=== PATIENT | male | born 1930 | race Caucasian/White ===

== ENCOUNTER 2016-05-17 13:35 | Outpatient (CLI) | payer MEDICARE | END 2016-05-17 13:36 | disposition home or self-care (01) | DX: D64.9 Anemia, unspecified (principal) ==

== ENCOUNTER 2016-05-29 08:26 | Outpatient (CLI) | payer MEDICARE | END 2016-05-29 08:27 | disposition home or self-care (01) | DX: D64.9 Anemia, unspecified (principal) ==

== ENCOUNTER 2016-08-22 21:59 | Outpatient (CLI) | payer MEDICARE | END 2016-08-22 22:00 | disposition home or self-care (01) | DX: C61 Malignant neoplasm of prostate (principal) ==

== ENCOUNTER 2016-09-19 14:59 | Outpatient (CLI) | payer MEDICARE ==
[2016-09-21 20:03] LABS: ANA SCREEN POSITIVE (NEGATIVE)
== END 2016-09-19 15:00 | disposition home or self-care (01) ==
LOC: LAB.R 14:59
PROVIDERS: ATTEND Internal Medicine
DX: M13.841 Other specified arthritis, right hand (principal)
CPT/HCPCS: 85651; 86038; 86140; 86200; 86430

== ENCOUNTER 2016-11-21 08:31 | Outpatient (CLI) | payer MEDICARE ==
[2016-11-21 16:22] LABS: BASOPHILS # (AUTO) 0.1 10^3/uL (0.0-0.1); EOSINOPHILS # (AUTO) 0.6 10^3/uL (0.0-0.7); EOSINOPHILS % (AUTO) 6.6 %; HCT - HEMATOCRIT 38.8 % (42.0-52.0); HGB - HEMOGLOBIN 13.1 g/dL (14.0-18.0); LYMPHOCYTES # (AUTO) 1.7 10^3/uL (1.5-3.5); LYMPHOCYTES % (AUTO) 19.7 %; MEAN CORPUSCULAR HEMOGLOBIN 32.2 pg (27.0-31.0); MEAN CORPUSCULAR HGB CONC 33.8 g/dL (32.0-36.0); MEAN CORPUSCULAR VOLUME 95.3 fL (80.0-94.0); MEAN PLATELET VOLUME 9.7 fL (7.4-11.4); MONOCYTES # (AUTO) 0.9 10^3/uL (0.0-1.0); MONOCYTES % (AUTO) 10.6 %; NEUTROPHILS # (AUTO) 5.2 10^3/uL (1.5-6.6); NEUTROPHILS % (AUTO) 62.1 %; NUCLEATED RED BLOOD CELLS AUTO 0.1 /100WBC; RED BLOOD COUNT 4.07 10^6/uL (4.70-6.10); RED CELL DISTRIBUTION WIDTH 18.7 % (12.0-15.0); UNCORRECTED WHITE BLOOD COUNT 8.4 x10^3/uL; WHITE BLOOD COUNT 8.4 x10^3/uL (4.8-10.8)
[2016-11-21 16:37] LABS: ALBUMIN/GLOBULIN RATIO 1.7 (1.0-2.2); BILIRUBIN,TOTAL 0.7 mg/dL (0.2-1.0); BUN - BLOOD UREA NITROGEN 21 mg/dL (6-20); CALCIUM 9.3 mg/dL (8.5-10.3); CARBON DIOXIDE - CO2 28 mmol/L (21-32); CHLORIDE 103 mmol/L (101-111); CHOL/HDL RATIO 2.6 (<5.0); CHOLESTEROL 147 mg/dL; GFR - MDRD 71 (>89); GLUCOSE 86 mg/dL (70-100); HDL CHOLESTEROL 56 mg/dL; LDL/HDL RATIO 1.4 (<3.6); SODIUM 138 mmol/L (135-145); TOTAL PROTEIN 7.2 g/dL (6.7-8.2); TRIGLYCERIDES 69 mg/dL; VLDL CHOLESTEROL 14 mg/dL
== END 2016-11-21 08:32 | disposition home or self-care (01) ==
LOC: LAB.R 08:31
PROVIDERS: ATTEND Internal Medicine
DX: D64.9 Anemia, unspecified (principal); M19.90 Unspecified osteoarthritis, unspecified site; E03.9 Hypothyroidism, unspecified; E78.2 Mixed hyperlipidemia
CPT/HCPCS: 80053; 80061; 84443; 85025; 85651; 86140

== ENCOUNTER 2017-01-15 10:17 | Outpatient (CLI) | payer MEDICARE | END 2017-01-15 10:18 | disposition home or self-care (01) | LOC: LAB.R 10:17 | PROVIDERS: ATTEND Internal Medicine | DX: E03.9 Hypothyroidism, unspecified (principal); Z79.899 Other long term (current) drug therapy | CPT/HCPCS: 84443 ==

== ENCOUNTER 2017-03-27 08:00 | Outpatient (CLI) | payer MEDICARE | END 2017-03-27 08:01 | disposition home or self-care (01) | LOC: LAB.R 08:00 | PROVIDERS: ATTEND Internal Medicine | DX: E03.9 Hypothyroidism, unspecified (principal); Z79.899 Other long term (current) drug therapy | CPT/HCPCS: 84443 ==

== ENCOUNTER 2017-11-26 08:00 | Outpatient (CLI) | payer MEDICARE ==
[2017-11-26 15:31] LABS: BASOPHILS # (AUTO) 0.1 10^3/uL (0.0-0.1); BASOPHILS % (AUTO) 0.9 %; EOSINOPHILS # (AUTO) 0.5 10^3/uL (0.0-0.7); EOSINOPHILS % (AUTO) 6.2 %; HGB - HEMOGLOBIN 13.6 g/dL (14.0-18.0); LYMPHOCYTES # (AUTO) 1.5 10^3/uL (1.5-3.5); LYMPHOCYTES % (AUTO) 19.9 %; MEAN CORPUSCULAR HGB CONC 34.2 g/dL (32.0-36.0); MEAN CORPUSCULAR VOLUME 96.5 fL (80.0-94.0); MEAN PLATELET VOLUME 9.6 fL (7.4-11.4); MONOCYTES # (AUTO) 0.7 10^3/uL (0.0-1.0); MONOCYTES % (AUTO) 9.1 %; NEUTROPHILS % (AUTO) 63.9 %; PLT - PLATELET COUNT 212 10^3/uL (130-450); RED BLOOD COUNT 4.12 10^6/uL (4.70-6.10); WHITE BLOOD COUNT 7.8 x10^3/uL (4.8-10.8)
[2017-11-26 15:35] LABS: ALBUMIN 4.2 g/dL (3.2-5.5); ALBUMIN/GLOBULIN RATIO 1.2 (1.0-2.2); ALKALINE PHOSPHATASE 32 IU/L (42-121); ALT ALANINE AMINOTRANSFERASE 20 IU/L (10-60); AST ASPARTATE AMINOTRANSFERASE 25 IU/L (10-42); BILIRUBIN,TOTAL 1.2 mg/dL (0.2-1.0); BUN - BLOOD UREA NITROGEN 23 mg/dL (6-20); CALCIUM 9.4 mg/dL (8.5-10.3); CARBON DIOXIDE - CO2 28 mmol/L (21-32); CHLORIDE 101 mmol/L (101-111); CHOL/HDL RATIO 2.9 (<5.0); CHOLESTEROL 163 mg/dL; GFR - MDRD 71 (>89); GLUCOSE 93 mg/dL (70-100); HDL CHOLESTEROL 56 mg/dL; LDL CHOLESTEROL,CALCULATED 85 mg/dL; LDL/HDL RATIO 1.5 (<3.6); SODIUM 136 mmol/L (135-145); TOTAL PROTEIN 7.6 g/dL (6.7-8.2); VLDL CHOLESTEROL 22 mg/dL
== END 2017-11-26 08:01 | disposition home or self-care (01) ==
LOC: LAB.R 08:00
PROVIDERS: ATTEND Internal Medicine
DX: C61 Malignant neoplasm of prostate (principal); E78.5 Hyperlipidemia, unspecified; I10 Essential (primary) hypertension; E03.9 Hypothyroidism, unspecified
CPT/HCPCS: 80053; 80061; 83721; 84153; 84443; 85025

== ENCOUNTER 2018-04-02 09:25 | Outpatient (CLI) | payer MEDICARE | END 2018-04-02 23:59 | disposition home or self-care (01) | LOC: LAB 09:25 | PROVIDERS: ATTEND Internal Medicine | DX: E03.9 Hypothyroidism, unspecified (principal) | CPT/HCPCS: 84443 ==

== ENCOUNTER 2019-01-16 09:22 | Outpatient (CLI) | payer MEDICARE ==
[2019-01-16 09:55] LABS: ALBUMIN 4.3 g/dL (3.2-5.5); ALBUMIN/GLOBULIN RATIO 1.5 (1.0-2.2); ALKALINE PHOSPHATASE 36 IU/L (42-121); ALT ALANINE AMINOTRANSFERASE 24 IU/L (10-60); AST ASPARTATE AMINOTRANSFERASE 25 IU/L (10-42); BUN - BLOOD UREA NITROGEN 24 mg/dL (6-20); CALCIUM 8.9 mg/dL (8.5-10.3); CARBON DIOXIDE - CO2 31 mmol/L (21-32); CHLORIDE 105 mmol/L (101-111); CHOL/HDL RATIO 3.1 (<5.0); CHOLESTEROL 154 mg/dL; GFR - MDRD 71 (>89); GLUCOSE 109 mg/dL (70-100); HDL CHOLESTEROL 49 mg/dL; LDL CHOLESTEROL,CALCULATED 91 mg/dL; LDL/HDL RATIO 1.9 (<3.6); SODIUM 144 mmol/L (135-145); TOTAL PROTEIN 7.2 g/dL (6.7-8.2); VLDL CHOLESTEROL 14 mg/dL
[2019-01-16 10:39] LABS: HB2 TOTAL 13.6 g/dL; HEMOGLOBIN A1C 0.48 g/dL; HEMOGLOBIN A1C % 5.4 % (4.6-6.2)
== END 2019-01-16 09:23 | disposition home or self-care (01) ==
LOC: LAB 09:22
PROVIDERS: ATTEND Internal Medicine
DX: E78.5 Hyperlipidemia, unspecified (principal); E03.9 Hypothyroidism, unspecified; R73.02 Impaired glucose tolerance (oral)
CPT/HCPCS: 36415; 80053; 80061; 83036; 83721; 84443

== ENCOUNTER 2019-07-09 10:50 | Outpatient (CLI) | payer MEDICARE ==
--- NOTE | 2019-07-09 12:30 | XRAY Report ---
Reason: E03.9,HIP PAIN,LEFT Procedure Date: 07/09/2019 Accession Number: [id number] / [id number] Procedure: XR - Hip w/Pelvis 2-3V LT CPT Code: Final Report FULL RESULT: EXAM: LEFT HIP RADIOGRAPHY EXAM DATE: 07/09/2019 11:14 AM. CLINICAL HISTORY: E03.9, hip pain, left. COMPARISON: HIP 2 VIEW RT 12/26/2013 1:04 PM. TECHNIQUE: 2 views. FINDINGS: There is mild narrowing of the left hip joint space, with no significant osteophytic spurring. No femoral head collapse. No fracture or dislocation. Previous bipolar right hip arthroplasty, with normal alignment. Numerous prostate radiotherapy seeds project centrally in the lower pelvis. The sacroiliac joints appear intact. 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 [facility]
--- NOTE | 2019-07-11 07:56 | XRAY Report ---
Reason: HIP PAIN,LEFT Procedure Date: 07/09/2019 Accession Number: [id number] / [id number] Procedure: XR - Lumbar Spine Complete CPT Code: Final Report FULL RESULT: EXAM: LUMBOSACRAL SPINE RADIOGRAPHY EXAM DATE: 07/09/2019 11:45 AM. CLINICAL HISTORY: HIP PAIN, LEFT. COMPARISONS: None. TECHNIQUE: 3 views. FINDINGS: 5 non-rib bearing lumbar vertebral bodies. There is borderline grade 1 retrolisthesis of L2 on L3, and grade 1 anterolisthesis of L5 on S1. Mild anterior endplate osteophytic spurring and disk space narrowing at L2-L3. Moderate hypertrophic changes at the facet articulations bilaterally L4-L5 and L5-S1. Moderately heavy mural calcification of the abdominal aorta. Imaged portion of the sacroiliac joints appear IMPRESSION: Normal lumbar spine radiography. [facility]
== END 2019-07-09 10:51 | disposition home or self-care (01) ==
LOC: LAB 10:50 → DI 10:51
PROVIDERS: ATTEND Family Medicine
DX: M16.12 Unilateral primary osteoarthritis, left hip (principal); M47.816 Spondylosis without myelopathy or radiculopathy, lumbar region; M43.16 Spondylolisthesis, lumbar region; M43.17 Spondylolisthesis, lumbosacral region; E03.9 Hypothyroidism, unspecified
CPT/HCPCS: 36415; 72110; 84443

== ENCOUNTER 2020-02-11 10:20 | Outpatient (CLI) | payer MEDICARE | END 2020-02-11 10:21 | disposition home or self-care (01) | LOC: COV 10:20 | PROVIDERS: ATTEND Family Medicine | DX: Z20.828 Contact with and (suspected) exposure to other viral communicable diseases (principal) ==

== ENCOUNTER 2020-02-18 08:00 | Outpatient (CLI) | payer MEDICARE ==
[2020-02-18 11:43] LABS: BASOPHILS # (AUTO) 0.1 10^3/uL (0.0-0.1); EOSINOPHILS # (AUTO) 0.2 10^3/uL (0.0-0.7); EOSINOPHILS % (AUTO) 3.3 %; HGB - HEMOGLOBIN 13.1 g/dL (14.0-18.0); LYMPHOCYTES # (AUTO) 1.4 10^3/uL (1.5-3.5); LYMPHOCYTES % (AUTO) 19.8 %; MEAN CORPUSCULAR HEMOGLOBIN 32.9 pg (27.0-31.0); MEAN CORPUSCULAR HGB CONC 33.2 g/dL (32.0-36.0); MEAN PLATELET VOLUME 12.3 fL (7.4-11.4); MONOCYTES # (AUTO) 0.7 10^3/uL (0.0-1.0); MONOCYTES % (AUTO) 9.5 %; NEUTROPHILS # (AUTO) 4.8 10^3/uL (1.5-6.6); NEUTROPHILS % (AUTO) 65.8 %; PLT - PLATELET COUNT 242 10^3/uL (130-450); RED BLOOD COUNT 3.98 10^6/uL (4.70-6.10); RED CELL DISTRIBUTION WIDTH 18.1 % (12.0-15.0); WHITE BLOOD COUNT 7.2 x10^3/uL (4.8-10.8)
[2020-02-18 11:50] LABS: ALBUMIN 4.3 g/dL (3.2-5.5); ALBUMIN/GLOBULIN RATIO 1.6 (1.0-2.2); ALKALINE PHOSPHATASE 35 IU/L (42-121); ALT ALANINE AMINOTRANSFERASE 20 IU/L (10-60); AST ASPARTATE AMINOTRANSFERASE 17 IU/L (10-42); BILIRUBIN,TOTAL 0.8 mg/dL (0.2-1.0); BUN - BLOOD UREA NITROGEN 31 mg/dL (6-20); CALCIUM 9.4 mg/dL (8.5-10.3); CARBON DIOXIDE - CO2 26 mmol/L (21-32); CHLORIDE 101 mmol/L (101-111); CHOL/HDL RATIO 3.5 (<5.0); CHOLESTEROL 158 mg/dL; CREATININE 1.2 mg/dL (0.6-1.2); GLUCOSE 100 mg/dL (70-100); HDL CHOLESTEROL 45 mg/dL; LDL CHOLESTEROL,CALCULATED 86 mg/dL; LDL/HDL RATIO 1.9 (<3.6); SODIUM 139 mmol/L (135-145); VLDL CHOLESTEROL 27 mg/dL
[2020-02-18 12:35] LABS: HEMOGLOBIN A1c% 5.2 % (4.27-6.07)
== END 2020-02-18 08:01 | disposition home or self-care (01) ==
LOC: LAB.WCP 08:00
PROVIDERS: ATTEND Nurse Practitioner Family
DX: E78.5 Hyperlipidemia, unspecified (principal); I10 Essential (primary) hypertension; E03.9 Hypothyroidism, unspecified; R73.02 Impaired glucose tolerance (oral)
CPT/HCPCS: 36415; 80053; 80061; 83036; 83721; 84443; 85025

== ENCOUNTER 2020-05-23 12:15 | Outpatient (CLI) | payer MEDICARE | END 2020-05-23 23:59 | disposition home or self-care (01) | LOC: LAB.R 12:15 | PROVIDERS: ATTEND Nurse Practitioner | DX: R31.9 Hematuria, unspecified (principal) | CPT/HCPCS: 87086 ==

== ENCOUNTER 2020-05-23 13:07 | Emergency (ER) | payer MEDICARE ==
--- NOTE | 2020-05-23 13:51 | ED Physician Documentation ---
History of Present Illness - Stated complaint Stated Complaint: MALE - Chief complaint Chief Complaint: General - Additonal information Additional information: 89-year-old male presents the emergency department for difficulty urinating and blood from his penis. He reports that about midnight last night he got up to use the restroom and was able to void but noted a little bit of blood in the toilet he placed a depends catheter brief on and then went back to bed this morning when he woke up he was in pain and noticed blood coming from his penis. Since then he has had difficulty initiating the urine stream and has noticed that when he does void it is quite bloody. He does have a history of prostate cancer treated with radiation seeds 8 years ago. He reports that since then his PSA levels have been normal. He denies that he has difficulty initiating urine stream since then. Past medical history includes hypertension hypothyroidism. He is not anticoagulated. Review of Systems Constitutional: denies: Fever Eyes: reports: Reviewed and negative Ears: reports: Reviewed and negative Nose: reports: Reviewed and negative Throat: reports: Reviewed and negative Cardiac: reports: Reviewed and negative Respiratory: reports: Reviewed and negative GI: denies: Abdominal Pain, Nausea, Vomiting, Constipation, Diarrhea, Bloody / black stool : reports: Dysuria, Unable to Void, Hematuria, Discharge (bloody penile output) Musculoskeletal: reports: Reviewed and negative Neurologic: reports: Reviewed and negative PD PAST MEDICAL HISTORY - Past Medical History Past Medical History: Yes Cardiovascular: Hypertension, High cholesterol Respiratory: None Endocrine/Autoimmune: None GI: GERD : Other HEENT: None Psych: None Musculoskeletal: None Derm: None - Past Surgical History Past Surgical History: Yes General: Colonoscopy, EGD, Other Ortho: Hip replacement HEENT: Tonsil/Adenoidectomy - Present Medications Home Medications: Ambulatory Orders Medication Instructions Recorded Confirmed Aspirin [Aspir 81] 81 mg PO DAILY 02/10/13 08/22/15 Captopril 50 mg PO BID 02/10/13 08/22/15 Felodipine [Felodipine ER] 5 mg PO BID 02/10/13 08/22/15 Hydrochlorothiazide 25 gm MC DAILY 02/10/13 08/22/15 Omeprazole 20 mg PO DAILY 02/10/13 08/22/15 Simvastatin [Zocor] 10 mg PO HS 02/10/13 08/22/15 Levothyroxine [Synthroid] 0.075 mcg PO QDAC 07/25/13 08/22/15 - Allergies Allergies/Adverse Reactions: Allergies Allergy/AdvReac Type Severity Reaction Status Date / Time tape Allergy Intermediate Blisters Uncoded 05/23/20 13:24 - Social History Does the pt smoke?: No Smoking Status: Never smoker Does the pt drink ETOH?: Yes Does the pt have substance abuse?: No - Immunizations Immunizations are current?: Yes - POLST Patient has POLST: No PD ED PE EXPANDED - General General: Alert, No acute distress - Cardiac Cardiac: Regular Rate, Regular Rhythm, Murmur Present, Radial strong equal, Pedal strong equal, Cap refill < 2 sec - Respiratory Respiratory: Clear to ausultation denis. No: Distress - Abdomen Abdomen: Normal Bowel sounds, Surgical scars. No: Tender to palpation - Male Male : Circumcised (Blood at urethral meatus. Nontender penis, nontender scrotum and testes. No suprapubic flank or abdominal pain elicited) - Derm Derm: Normal color, Abrasion (s) (arms) - Extremities Extremities: Normal. No: Deformity, Tenderness - Neuro Neuro: Alert and Oriented X 3. No: Confused, Disoriented - GCS Eye Opening: Spontaneous Motor: Obeys Commands Verbal: Oriented Total: 15 Results - Vitals Vitals: Vital Signs - 24 hr 05/23/20 05/23/20 13:24 13:32 Temperature 36.3 C L 36.5 C Heart Rate 74 74 Respiratory 16 16 Rate Blood Pressure 168/81 H 168/81 H O2 Saturation 97 97 Oxygen O2 Source Room air - Labs Labs: Laboratory Tests 05/23/20 05/23/20 05/23/20 14:05 14:10 14:10 WBC 11.6 H RBC 3.61 L Hgb 12.0 L Hct 35.4 L MCV 98.1 H MCH 33.2 H MCHC 33.9 RDW 17.7 H Plt Count 233 MPV 11.7 H Neut # (Auto) 10.0 H Lymph # (Auto) 0.9 L Loving # (Auto) 0.7 Eos # (Auto) 0.0 Baso # (Auto) 0.1 Absolute Nucleated RBC 0.00 Nucleated RBC % 0.0 Sodium 138 Potassium 4.0 Chloride 99 L Carbon Dioxide 27 Anion Gap 12.0 BUN 28 H Creatinine 1.1 Estimated GFR (MDRD) 63 L Glucose 114 H Calcium 9.7 Total Bilirubin 0.8 AST 20 ALT 22 Alkaline Phosphatase 32 L Total Protein 7.0 Albumin 4.3 Globulin 2.7 Albumin/Globulin Ratio 1.6 Lipase 32 Urine Color RED/BLOODY Urine Clarity CLOUDY Urine pH 7.0 Ur Specific [place] 1.020 Urine Protein >=300 H Urine Glucose (UA) NEGATIVE Urine Ketones NEGATIVE Urine Occult Blood LARGE H Urine Nitrite NEGATIVE Urine Bilirubin NEGATIVE Urine Urobilinogen 1 (NORMAL) Ur Leukocyte Esterase NEGATIVE Urine RBC TNTC H Urine WBC 0-3 Ur Squamous Epith Cells RARE Squamous Urine Bacteria Few Ur Microscopic Review INDICATED Urine Culture Comments NOT INDICATED PD MEDICAL DECISION MAKING - ED course Complexity details: reviewed results, re-evaluated patient, considered differential, d/w patient ED course: 89-year-old male presents the emergency department with painful urination and blood coming from the tip of his penis. He does have a history of prostate cancer with radiation beads that have been placed about 8 years ago. Screening labs show mild leukocytosis but patient has no fevers. Though bloody his urine is not consistent with infection. His renal function is preserved on chemistry panel. A bladder scan was done and it showed about 289 mils of fluid in the bladder. We did catheterize this gentleman and did drain about 300 mils of bloody urine. I discussed with the patient the hematuria can cause urinary obstruction. The cause of that obstruction is not clear at this time. He needs urology consult and I will make a referral for him to Dr. Franklin in [place]. We discussed trialing leaving the Brown in or taking it out. At this time the patient elects to have the Brown removed. He will return if unable to void after 4 to 6 hours, has abdominal pain fevers or vomiting. Departure - Departure Disposition: 01 Home, Self Care Clinical Impression: Hematuria Qualifiers: Hematuria type: gross Qualified Code(s): R31.0 - Gross hematuria Condition: Stable Record reviewed to determine appropriate education?: Yes Follow-Up: Jair Morrell MD [Primary Care Provider] - Theodore Franklin MD [Provider Admit Priv/Credential] - Comments: You are seen in the emergency to department today for bloody urine. Your chemistry panel today shows that your kidney function is normal. Your urine does not show obvious infection. The cause of your bloody urine is not clear at this time however you do need to be seen by a urologist. As we discussed they may need to do a procedure called a cystoscopy where they would look inside your bladder with a cancer for a cause of the bloody urine. You have elected to have your Brown catheter removed today. It is okay to go home drink plenty of fluids. If you find that you are unable to eat adequately urinate after 4 to 6 hours, you begin to have fevers abdominal pain or vomiting please return to the emergency department. At that time we would place another catheter and discharge you home with it until you are able to see urology.
[2020-05-23 14:26] LABS: BASOPHILS # (AUTO) 0.1 10^3/uL (0.0-0.1); BASOPHILS % (AUTO) 0.4 %; EOSINOPHILS % (AUTO) 0.1 %; LYMPHOCYTES # (AUTO) 0.9 10^3/uL (1.5-3.5); LYMPHOCYTES % (AUTO) 7.4 %; MEAN CORPUSCULAR HEMOGLOBIN 33.2 pg (27.0-31.0); MEAN CORPUSCULAR HGB CONC 33.9 g/dL (32.0-36.0); MEAN CORPUSCULAR VOLUME 98.1 fL (80.0-94.0); MEAN PLATELET VOLUME 11.7 fL (7.4-11.4); MONOCYTES # (AUTO) 0.7 10^3/uL (0.0-1.0); MONOCYTES % (AUTO) 5.9 %; NEUTROPHILS % (AUTO) 85.8 %; PLT - PLATELET COUNT 233 10^3/uL (130-450); RED BLOOD COUNT 3.61 10^6/uL (4.70-6.10); RED CELL DISTRIBUTION WIDTH 17.7 % (12.0-15.0); WHITE BLOOD COUNT 11.6 x10^3/uL (4.8-10.8)
[2020-05-23 14:31] LABS: ALBUMIN 4.3 g/dL (3.2-5.5); ALBUMIN/GLOBULIN RATIO 1.6 (1.0-2.2); BILIRUBIN,TOTAL 0.8 mg/dL (0.2-1.0); CALCIUM 9.7 mg/dL (8.5-10.3); CREATININE 1.1 mg/dL (0.6-1.2)
[2020-05-23 14:44] LABS: BILIRUBIN,URINE NEGATIVE (NEGATIVE); GLUCOSE, URINE (UA) NEGATIVE (NEGATIVE); KETONES,URINE (UA) NEGATIVE (NEGATIVE); LEUKOCYTE ESTERASE, URINE NEGATIVE (NEGATIVE); NITRITE,URINE NEGATIVE (NEGATIVE); OCCULT BLOOD,URINE LARGE (NEGATIVE); PROTEIN,URINE >=300 mg/dL (NEGATIVE); UROBILINOGEN,URINE 1 (NORMAL) E.U./dL (NORMAL)
[2020-05-23 14:55] LABS: CLARITY,URINE CLOUDY (CLEAR)
[2020-05-23 15:26] LABS: RBC,URINE TNTC /HPF (0-5); SQUAMOUS EPITHELIAL CELL,UR RARE Squamous (<= Few)
[2020-05-23 15:27] LABS: BACTERIA,URINE Few /HPF (None Seen)
[2020-05-23 15:41] VITALS: BP 174/96
== END 2020-05-23 15:57 | disposition home or self-care (01) ==
LOC: ED 13:07
DX: R31.0 Gross hematuria (principal); Z85.46 Personal history of malignant neoplasm of prostate; I10 Essential (primary) hypertension
CPT/HCPCS: 36415; 51701; 51798; 80053; 81001; 81003; 83690; 85025; 87086; 99283

== ENCOUNTER 2020-06-09 13:27 | Outpatient (CLI) | payer MEDICARE ==
[2020-06-09] MEDS ORDERED: IOVERSOL 320 100 ML VIAL IVP ONE ×2 (13:47→13:52)
--- NOTE | 2020-06-10 10:05 | CT Report ---
PROCEDURE: IVP INDICATIONS: GROSS HEMATURIA CONTRAST: IV CONTRAST: Optiray 320 ml: 140 PO CONTRAST: *NO PO CONTRAST TECHNIQUE: After the administration of intravenous contrast, 5 mm thick sections acquired from the diaphragms to the symphysis. 5 mm thick coronal and sagittal reformats were acquired. For radiation dose reducti on, the following was used: automated exposure control, adjustment of mA and/or kV according to bradley ent size. COMPARISON: None. FINDINGS: Image quality: There is limited visualization of the pelvis secondary to artifact from hip arthropla sty. Lung bases: Lung bases are clear. Heart size is normal. Urinary system: Both kidneys are atrophic. Bilateral exophytic renal cysts are noted.. Contrast-janee led renal calyces are normal in morphology. Contrast filled portions of both ureters are normal in c aliber. Bladder is incompletely distended. Portions of the right lateral wall are partially obscured secondary to metallic streak artifact from adjacent hip arthroplasty. There is a questionable fillin g defect along the posterior right lateral bladder seen on series 6 image 94. Solid organs: Liver and spleen are normal in size and enhancement. Gallbladder is unremarkable Ranjit iary system is non dilated. Pancreas enhances normally. No adrenal nodules. Peritoneum and bowel: Bowel loops demonstrate normal wall thickness and caliber. No free fluid or a ir. Nodes and vessels: No retroperitoneal or mesenteric adenopathy by size criteria. Aorta and inferior vena cava are normal in size. Abdominal wall: No ventral hernias. Pelvis: No pathologic free pelvic fluid. No inguinal hernias or adenopathy. Prostate is enlarged. R adiation prostate seeds are noted. Bones: No suspicious bony lesions. No vertebral body compression fractures. IMPRESSION: 1. No nephro or ureterolithiasis. No bladder calculi. 2. Question of filling defect within the posterior inferior right bladder as above. While this could be artifact or volume averaging near the ureterovesicular junction, small lesion cannot be definitive ly excluded. Cystoscopy is recommended for further evaluation. Reviewed by: Chaya Felix MD on 06/10/2020 10:04 AM [facility] Approved by: Chaya Felix MD on 06/10/2020 10:04 AM [facility] Station ID: [id number]
== END 2020-06-09 13:28 | disposition home or self-care (01) ==
LOC: DI 13:27
PROVIDERS: ATTEND Urology
DX: R31.0 Gross hematuria (principal)
CPT/HCPCS: 74178; Q9967

== ENCOUNTER 2020-09-27 08:00 | Outpatient (CLI) | payer MEDICARE ==
[2020-09-27 12:23] LABS: BASOPHILS # (AUTO) 0.1 10^3/uL (0.0-0.1); BASOPHILS % (AUTO) 0.7 %; EOSINOPHILS # (AUTO) 0.2 10^3/uL (0.0-0.7); EOSINOPHILS % (AUTO) 2.5 %; HCT - HEMATOCRIT 35.3 % (42.0-52.0); HGB - HEMOGLOBIN 11.3 g/dL (14.0-18.0); LYMPHOCYTES # (AUTO) 1.1 10^3/uL (1.5-3.5); MEAN PLATELET VOLUME 12.1 fL (7.4-11.4); MONOCYTES % (AUTO) 10.9 %; NEUTROPHILS # (AUTO) 6.3 10^3/uL (1.5-6.6); NEUTROPHILS % (AUTO) 72.3 %; NRBC ABSOLUTE COUNT (AUTO) 0.03 x10^3/uL; NUCLEATED RED BLOOD CELLS AUTO 0.3 /100WBC; PLT - PLATELET COUNT 206 10^3/uL (130-450); RED BLOOD COUNT 3.53 10^6/uL (4.70-6.10); RED CELL DISTRIBUTION WIDTH 18.9 % (12.0-15.0); WHITE BLOOD COUNT 8.8 x10^3/uL (4.8-10.8)
[2020-09-27 13:35] LABS: THYROID STIMULATING HORMONE 6.46 uIU/mL (0.34-5.60)
[2020-09-27 13:36] LABS: ALBUMIN 4.4 g/dL (3.2-5.5); ALBUMIN/GLOBULIN RATIO 1.7 (1.0-2.2); ALKALINE PHOSPHATASE 38 IU/L (42-121); ALT ALANINE AMINOTRANSFERASE 27 IU/L (10-60); AST ASPARTATE AMINOTRANSFERASE 33 IU/L (10-42); BILIRUBIN,TOTAL 1.5 mg/dL (0.2-1.0); BUN - BLOOD UREA NITROGEN 28 mg/dL (6-20); CALCIUM 9.1 mg/dL (8.5-10.3); CARBON DIOXIDE - CO2 27 mmol/L (21-32); CHLORIDE 103 mmol/L (101-111); CHOL/HDL RATIO 2.9 (<5.0); CHOLESTEROL 150 mg/dL; GFR - MDRD 71 (>89); GLUCOSE 116 mg/dL (70-100); HDL CHOLESTEROL 51 mg/dL; LDL CHOLESTEROL,CALCULATED 86 mg/dL; LDL/HDL RATIO 1.7 (<3.6); SODIUM 141 mmol/L (135-145); TRIGLYCERIDES 67 mg/dL; VLDL CHOLESTEROL 13 mg/dL
[2020-09-27 13:56] LABS: ESTIMATED AVERAGE GLUCOSE 105 mg/dL (70-100); HEMOGLOBIN A1c% 5.3 % (4.27-6.07)
[2020-09-27 14:15] LABS: FREE T4 (FREE THYROXINE) 1.02 ng/dL (0.58-1.64)
== END 2020-09-27 23:59 | disposition home or self-care (01) ==
LOC: LAB.WCP 08:00
PROVIDERS: ATTEND Family Medicine
DX: R73.02 Impaired glucose tolerance (oral) (principal); E78.5 Hyperlipidemia, unspecified; E03.9 Hypothyroidism, unspecified; I10 Essential (primary) hypertension
CPT/HCPCS: 36415; 80053; 80061; 83036; 83721; 84439; 84443; 85025

== ENCOUNTER 2021-03-24 08:00 | Outpatient (CLI) | payer MEDICARE ==
[2021-03-24 18:46] LABS: CALCIUM 9.6 mg/dL (8.5-10.3); CREATININE 1.1 mg/dL (0.6-1.2); POTASSIUM 4.7 mmol/L (3.5-5.0)
[2021-03-24 18:53] LABS: THYROID STIMULATING HORMONE 6.16 uIU/mL (0.34-5.60)
[2021-03-24 19:35] LABS: FREE T4 (FREE THYROXINE) 0.91 ng/dL (0.58-1.64)
[2021-03-24 20:41] LABS: ESTIMATED AVERAGE GLUCOSE 103 mg/dL (70-100); HEMOGLOBIN A1c% 5.2 % (4.27-6.07)
== END 2021-03-24 23:59 | disposition home or self-care (01) ==
LOC: LAB.WCP 08:00
PROVIDERS: ATTEND Family Medicine
DX: R73.9 Hyperglycemia, unspecified (principal)
CPT/HCPCS: 36415; 80048; 83036; 84439; 84443

== ENCOUNTER 2021-07-08 09:58 | Outpatient (CLI) | payer MEDICARE ==
[2021-07-08 10:12] LABS: BASOPHILS % (AUTO) 0.5 %; EOSINOPHILS # (AUTO) 0.3 10^3/uL (0.0-0.7); EOSINOPHILS % (AUTO) 3.3 %; HCT - HEMATOCRIT 36.5 % (42.0-52.0); HGB - HEMOGLOBIN 12.3 g/dL (14.0-18.0); LYMPHOCYTES # (AUTO) 1.3 10^3/uL (1.5-3.5); LYMPHOCYTES % (AUTO) 15.2 %; MEAN CORPUSCULAR HGB CONC 33.7 g/dL (32.0-36.0); MEAN CORPUSCULAR VOLUME 97.9 fL (80.0-94.0); MEAN PLATELET VOLUME 10.8 fL (7.4-11.4); MONOCYTES # (AUTO) 0.9 10^3/uL (0.0-1.0); MONOCYTES % (AUTO) 10.6 %; NEUTROPHILS # (AUTO) 5.9 10^3/uL (1.5-6.6); PLT - PLATELET COUNT 216 10^3/uL (130-450); RED BLOOD COUNT 3.73 10^6/uL (4.70-6.10); RED CELL DISTRIBUTION WIDTH 18.7 % (12.0-15.0); WHITE BLOOD COUNT 8.5 x10^3/uL (4.8-10.8)
[2021-07-08 10:33] LABS: ALBUMIN 4.4 g/dL (3.2-5.5); ALBUMIN/GLOBULIN RATIO 1.8 (1.0-2.2); BILIRUBIN,TOTAL 0.9 mg/dL (0.2-1.0); CALCIUM 9.5 mg/dL (8.5-10.3); CREATININE 1.1 mg/dL (0.6-1.2); POTASSIUM 4.3 mmol/L (3.5-5.0); TOTAL PROTEIN 6.8 g/dL (6.7-8.2)
[2021-07-08 10:52] LABS: THYROID STIMULATING HORMONE 5.87 uIU/mL (0.34-5.60)
[2021-07-08 10:54] LABS: FREE T4 (FREE THYROXINE) 0.8 ng/dL (0.58-1.64)
== END 2021-07-08 09:59 | disposition home or self-care (01) ==
LOC: LAB 09:58
PROVIDERS: ATTEND Family Medicine
DX: R19.7 Diarrhea, unspecified (principal); K21.9 Gastro-esophageal reflux disease without esophagitis; E03.9 Hypothyroidism, unspecified
CPT/HCPCS: 36415; 80053; 84439; 84443; 85025

== ENCOUNTER 2021-07-13 15:05 | Outpatient (CLI) | payer MEDICARE | END 2021-07-13 15:06 | disposition home or self-care (01) | LOC: LAB 15:05 | PROVIDERS: ATTEND Family Medicine | DX: R19.7 Diarrhea, unspecified (principal); K21.9 Gastro-esophageal reflux disease without esophagitis | CPT/HCPCS: 87493 ==

== ENCOUNTER 2021-07-28 10:18 | Outpatient (CLI) | payer MEDICARE ==
[2021-07-28 10:29] LABS: BASOPHILS # (AUTO) 0.1 10^3/uL (0.0-0.1); BASOPHILS % (AUTO) 0.7 %; EOSINOPHILS # (AUTO) 0.2 10^3/uL (0.0-0.7); EOSINOPHILS % (AUTO) 2.1 %; HCT - HEMATOCRIT 36.9 % (42.0-52.0); HGB - HEMOGLOBIN 12.4 g/dL (14.0-18.0); LYMPHOCYTES # (AUTO) 1.4 10^3/uL (1.5-3.5); LYMPHOCYTES % (AUTO) 16.2 %; MEAN CORPUSCULAR HEMOGLOBIN 32.5 pg (27.0-31.0); MEAN CORPUSCULAR HGB CONC 33.6 g/dL (32.0-36.0); MEAN CORPUSCULAR VOLUME 96.9 fL (80.0-94.0); MEAN PLATELET VOLUME 11.1 fL (7.4-11.4); MONOCYTES % (AUTO) 10.9 %; NEUTROPHILS # (AUTO) 6.1 10^3/uL (1.5-6.6); NEUTROPHILS % (AUTO) 69.8 %; PLT - PLATELET COUNT 269 10^3/uL (130-450); RED BLOOD COUNT 3.81 10^6/uL (4.70-6.10); RED CELL DISTRIBUTION WIDTH 18.4 % (12.0-15.0); WHITE BLOOD COUNT 8.7 x10^3/uL (4.8-10.8)
[2021-07-28 10:42] LABS: ALBUMIN 4.5 g/dL (3.2-5.5); ALBUMIN/GLOBULIN RATIO 1.7 (1.0-2.2); BILIRUBIN,TOTAL 1.1 mg/dL (0.2-1.0); CALCIUM 9.2 mg/dL (8.5-10.3); CREATININE 1.1 mg/dL (0.6-1.2); POTASSIUM 3.7 mmol/L (3.5-5.0); TOTAL PROTEIN 7.1 g/dL (6.7-8.2)
== END 2021-07-28 10:19 | disposition home or self-care (01) ==
LOC: LAB 10:18
PROVIDERS: ATTEND Family Medicine
DX: R19.7 Diarrhea, unspecified (principal); K21.9 Gastro-esophageal reflux disease without esophagitis
CPT/HCPCS: 36415; 80053; 81599; 85025; 87045; 87177; 87209; 87329; 87427; 87449; 87493